=== PATIENT | female | born 1955 ===

== ENCOUNTER 2018-01-28 15:39 | Emergency (ER) | payer BC ==
[2018-01-28] MEDS ORDERED: NS 0.9% 1000 ML* 1,000 ML IV ONE (17:20)
[2018-01-28 17:43] LABS: ABS Basophils 0.1 10^3/ul (0-0.2); ABS Eosinophils 0 10^3/ul (0-0.6); ABS Lymphocytes 1.6 10^3/ul (1.0-4.8); ABS Monocytes 0.4 10^3/ul (0-0.8); ABS Neutrophils 7.9 10^3/ul (1.5-7.7); ABS Nucleated RBC 0 10^3/ul; Eosinophil % 0.3 % (0-6); Hematocrit 44 % (35-47); Hemoglobin 15.2 g/dl (12.0-16.0); Lymphocyte % 16.1 % (25-47); Mean Corpuscular HGB Conc 34 g/dl (31-36); Mean Corpuscular Hemoglobin 30 pg (27-31); Mean Corpuscular Volume 88 fL (80-97); Mean Platelet Volume 7.8 um3 (7.4-10.4); Nucleated Red Blood Cells % 0; Platelet Count 312 10^3/ul (150-450); Red Blood Count 5.05 10^6/ul (4.0-5.4); Red Cell Distribution Width 13 % (10.5-15); White Blood Count 10.1 10^3/ul (3.5-10.8)
[2018-01-28 17:59] LABS: EGFR Non-African American 95.1 (>60)
--- NOTE | 2018-01-28 18:00 | RAD ---
Indication: New onset dizziness. Comparison: No relevant prior exams available on the [facility] PACS for comparison. Technique: Noncontrast CT vertex of skull through foramen magnum. Report: Mild prominence of the cerebral sulci and cerebellar fissures reflecting mild involutional change. Unremarkable ventricles and basal cisterns. Negative for hall matter white matter obscuration, intra or extra-axial hemorrhage, or mass effect. Unremarkable orbital contents. Negative for fracture or suspicious focal osseous lesions of the calvarium or skull base. Clear visualized paranasal sinuses and mastoid air spaces. Unremarkable scalp. IMPRESSION: No acute intracranial process evident. Mild involutional change.
--- NOTE | 2018-01-28 18:38 | ED ---
Dizziness - HPI Summary HPI Summary: Patient complains of dizziness, n/v 5 days. Patient sent to the ED by PCP. States room starts spinning with movement of head or change in body position. Denies fever, focal deficits, vision change, [place], cough, sore throat, CP, SOB, diarrhea, abdomen pain, change in urinary BM. Medical history is none. - History Of Current Complaint Chief Complaint: EDDizziness Stated Complaint: DIZZINESS Time Seen by Provider: 01/28/18 16:59 Hx Obtained From: Patient Onset/Duration: Still Present Timing: Days Severity Initially: Mild Severity Currently: Moderate Character: Room Spinning Alleviating Factor(s): Rest, Lying Down Associated Signs And Symptoms: Positive: Nausea, Vomiting - Allergies/Home Medications Allergies/Adverse Reactions: Allergies Allergy/AdvReac Type Severity Reaction Status Date / Time ketorolac [From Toradol] Allergy Rash Verified 01/28/18 15:44 PMH/Surg Hx/FS Hx/Imm Hx Infectious Disease History: No Infectious Disease History: Denies: Traveled Outside the in Last 30 Days - Social History Alcohol Use: None Substance Use Type: Reports: None Smoking Status (MU): Never Smoked Tobacco Review of Systems Constitutional: Negative Eyes: Negative ENT: Negative Cardiovascular: Negative Respiratory: Negative Positive: Vomiting, Nausea Genitourinary: Negative Musculoskeletal: Negative Skin: Negative Neurological: Negative Psychological: Normal All Other Systems Reviewed And Are Negative: Yes Physical Exam - Summary Physical Exam Summary: Neuro exam normal. Triage Information Reviewed: Yes Vital Signs On Initial Exam: Initial Vitals Temp Pulse Resp BP Pulse Ox 98.8 F 71 16 177/96 98 01/28/18 15:42 01/28/18 15:42 01/28/18 15:42 01/28/18 15:42 01/28/18 15:42 Vital Signs Reviewed: Yes Appearance: Positive: Well-Appearing Skin: Positive: Warm Head/Face: Positive: Normal Head/Face Inspection Eyes: Positive: Normal Neck: Positive: Supple Respiratory/Lung Sounds: Positive: Clear to Auscultation Cardiovascular: Positive: Normal Abdomen Description: Positive: Nontender Musculoskeletal: Positive: Normal Neurological: Positive: Normal Psychiatric: Positive: Normal AVPU Assessment: Alert - Tawnya Coma Scale Best Eye Response: 4 - Spontaneous Best Motor Response: 6 - Obeys Commands Best Verbal Response: 5 - Oriented Coma Scale Total: 15 Diagnostics - Vital Signs Vital Signs Temp Pulse Resp BP Pulse Ox 01/28/18 17:06 72 19 191/101 99 01/28/18 17:00 58 14 98 01/28/18 16:36 60 10 155/85 98 01/28/18 16:30 63 98 01/28/18 15:42 98.8 F 71 16 177/96 98 - Laboratory Lab Results: Lab Results 01/28/18 01/28/18 01/28/18 Range/Units 17:33 17:33 17:33 WBC 10.1 (3.5-10.8) 10^3/ul RBC 5.05 (4.0-5.4) 10^6/ul Hgb 15.2 (12.0-16.0) g/dl Hct 44 (35-47) % MCV 88 (80-97) fL MCH 30 (27-31) pg MCHC 34 (31-36) g/dl RDW 13 (10.5-15) % Plt Count 312 (150-450) 10^3/ul MPV 7.8 (7.4-10.4) um3 Neut % (Auto) 78.8 (38-83) % Lymph % (Auto) 16.1 L (25-47) % [place] % (Auto) 4.3 (0-7) % Eos % (Auto) 0.3 (0-6) % Baso % (Auto) 0.5 (0-2) % Absolute Neuts (auto) 7.9 H (1.5-7.7) 10^3/ul Absolute Lymphs (auto) 1.6 (1.0-4.8) 10^3/ul Absolute Monos (auto) 0.4 (0-0.8) 10^3/ul Absolute Eos (auto) 0 (0-0.6) 10^3/ul Absolute Basos (auto) 0.1 (0-0.2) 10^3/ul Absolute Nucleated RBC 0 10^3/ul Nucleated RBC % 0 Sodium 143 (139-145) mmol/L Potassium 3.6 (3.5-5.0) mmol/L Chloride 108 (101-111) mmol/L Carbon Dioxide 26 (22-32) mmol/L Anion Gap 9 (2-11) mmol/L BUN 10 (6-24) mg/dL Creatinine 0.63 (0.51-0.95) mg/dL Est GFR ( Amer) 122.4 (>60) Est GFR (Non-Af Amer) 95.1 (>60) BUN/Creatinine Ratio 15.9 (8-20) Glucose 114 H (70-100) mg/dL Lactic Acid 0.9 (0.5-2.0) mmol/L Calcium 8.8 (8.6-10.3) mg/dL Total Bilirubin 0.70 (0.2-1.0) mg/dL AST 14 (13-39) U/L ALT 21 (7-52) U/L Alkaline Phosphatase 65 (34-104) U/L C-Reactive Protein 1.06 (< 5.00) mg/L Total Protein 6.6 (6.4-8.9) g/dL Albumin 3.9 (3.2-5.2) g/dL Globulin 2.7 (2-4) g/dL Albumin/Globulin Ratio 1.4 (1-3) Result Diagrams: 01/28/18 17:33 01/28/18 17:33 Lab Statement: Any lab studies that have been ordered have been reviewed, and results considered in the medical decision making process. - CT brain CT Interpretation: No Acute Changes CT Interpretation Completed By: Radiologist Dizzy Course/Dx - Course Course Of Treatment: Complains of intermittent dizziness with change in position or movement of head 5 days, with associated N/V. Patient sent from PCP for evaluation. CT brain negative for acute process. Labs unremarkable. Prior episode of elevated blood pressure, but has returned to baseline. Neuro exam normal. Will give prescription for meclizine and Zofran. - Diagnoses Provider Diagnoses: Benign positional vertigo Discharge - Sign-Out/Discharge Documenting (check all that apply): Discharge/Admit/Transfer - Discharge Plan Condition: Stable Disposition: HOME Prescriptions: Meclizine TAB* [Antivert 12.5 TAB*] 25 mg PO TID PRN 10 Days #30 tab PRN Reason: Dizziness Ondansetron ODT TAB* [Zofran 4 MG Odt TAB*] 4 mg PO Q8H PRN 4 Days #21 tab.odt PRN Reason: Nausea Patient Education Materials: Benign Paroxysmal Positional Vertigo (ED), Dizziness (ED) Referrals: Edie Lawrence MD [Primary Care Provider] - Additional Instructions: Follow-up with primary care. Return to the ED for any new or worsening symptoms - Billing Disposition and Condition Condition: STABLE Disposition: HOME
[2018-01-28] MEDS ORDERED: Meclizine TAB* 12.5 MG PO ONE (18:39)
[2018-01-28] MEDS ORDERED: Ondansetron ODT TAB* 4 MG PO ONE (18:39)
[2018-01-28 18:56] VITALS: BP 148/98
== END 2018-01-28 18:56 | disposition home or self-care (01) ==
LOC: ED 15:39
DX: H81.10 Benign paroxysmal vertigo, unspecified ear (principal); Z88.5 Allergy status to narcotic agent
CPT/HCPCS: 36415; 70450; 80053; 83605; 85025; 86140; 93005; 99282; A9270-GY